=== PATIENT | female | born 1990 | race Caucasian/White ===

== ENCOUNTER 2018-02-03 19:06 | Inpatient (IN) | payer OTHER ==
[2018-02-03] MEDS ORDERED: MEPIVACAINE HCL 1% MPF 30 ML/VIAL SOL INFIL PRN (20:06)
[2018-02-03] MEDS ORDERED: METHYLERGONOVINE MALEATE 0.2 MG/ML SOL IM PRN (20:06)
[2018-02-03] MEDS ORDERED: LACTATED RINGERS 1,000 ML IV PRN (20:06)
[2018-02-03] MEDS ORDERED: CARBOPROST 250 MCG/ML SOL IM PRN (20:06)
[2018-02-03] MEDS ORDERED: FENTANYL 100MCG/2ML SOL IV PRN (20:06)
[2018-02-03] MEDS ORDERED: OXYTOCIN 10000 MU/ML SOL IM PRN (20:06)
[2018-02-03] MEDS: SODIUM CHLORIDE 0.9% FLUSH 10 ML SOL IV SCH (20:30)
[2018-02-03 20:37] LABS: BASOPHILS % (AUTO) 0 % (0-3); EOSINOPHILS % (AUTO) 1 % (0-9); HEMATOCRIT 35 % (35-47); HEMOGLOBIN 11.5 gm/dl (12.0-15.5); LYMPHOCYTES % (AUTO) 22.1 % (10-50); MEAN CORPUSCULAR HEMOGLOBIN 29.5 pg (27.0-32.0); MEAN CORPUSCULAR VOLUME 89 fL (81-99); MONOCYTES % (AUTO) 5.5 % (0-12); NEUTROPHILS % (AUTO) 71.2 % (37-80)
[2018-02-04] MEDS ORDERED: TERBUTALINE SULFATE 1 MG/ML SOL SC PRN (00:23)
[2018-02-04] MEDS ORDERED: OXYTOCIN 10000 MU/ML 20,000 MU in LACTATED RINGERS 1,000 ML IV SCH (00:30)
[2018-02-04] MEDS ORDERED: LACTATED RINGERS 1,000 ML IV SCH ×4 (00:30→05:45)
[2018-02-04] MEDS ORDERED: OXYTOCIN 10000 MU/ML SOL ONE (01:06)
[2018-02-04] MEDS ORDERED: LACTATED RINGERS 1,000 ML ONE (01:06)
[2018-02-04] MEDS: SODIUM CHLORIDE 0.9% FLUSH 10 ML SOL IV PRN ×3 (01:31→04:15)
[2018-02-04] MEDS ORDERED: NALBUPHINE HCL 20 MG/ML SOL IV PRN ×2 (01:50→05:23)
[2018-02-04] MEDS: SODIUM CHLORIDE 0.9% FLUSH 10 ML SOL IV SCH ×3 (03:58→22:55)
[2018-02-04] MEDS ORDERED: DIPHENHYDRAMINE 50 MG/ML SOL IV PRN (05:23)
[2018-02-04] MEDS ORDERED: EPHEDRINE SULFATE 50 MG/ML SOL IV PRN (05:23)
[2018-02-04] MEDS ORDERED: NALOXONE HYDROCHLORIDE 0.4 MG/ML SOL IV PRN ×2 (05:23→05:40)
[2018-02-04] MEDS ORDERED: ONDANSETRON HCL 4 MG/2 ML SOL IV PRN (05:30)
[2018-02-04] MEDS ORDERED: MORPHINE SULFATE 0.5 MG/ML SOL ONE (05:33)
[2018-02-04] MEDS ORDERED: DIPHENHYDRAMINE 25 MG CAP PO PRN (05:40)
[2018-02-04] MEDS ORDERED: DIPHENHYDRAMINE 50 MG/ML SOL IM PRN (05:40)
[2018-02-04] MEDS ORDERED: HYDROXYZINE HYDROCHLORIDE 25 MG/ML SOL IM PRN (05:40)
[2018-02-04] MEDS ORDERED: ONDANSETRON HCL 4 MG/2 ML SOL ONE (05:41)
[2018-02-04] MEDS: LACTATED RINGERS 1,000 ML IV SCH ×2 (07:54→19:58)
[2018-02-04] MEDS ORDERED: FLEET ENEMA PR PRN ×2 (08:41→08:42)
[2018-02-04] MEDS ORDERED: BENZOCAINE/MENTHOL 1 SPR TOP PRN ×2 (08:41→08:42)
[2018-02-04] MEDS ORDERED: WITCH HAZEL 1 EA PAD TOP PRN ×2 (08:41→08:42)
[2018-02-04] MEDS ORDERED: METHYLERGONOVINE MALEATE 0.2 MG TAB PO PRN ×2 (08:41→08:42)
[2018-02-04] MEDS ORDERED: TEMAZEPAM 15MG 15 MG CAP PO PRN ×2 (08:41→08:42)
[2018-02-04] MEDS ORDERED: APAP/HYDROCODONE 1 EACH TABLET PO PRN ×2 (08:41→08:42)
[2018-02-04] MEDS ORDERED: BISACODYL 10 MG SUP PR PRN ×2 (08:41→08:42)
[2018-02-04] MEDS ORDERED: IBUPROFEN 600 MG TAB PO PRN (08:42)
[2018-02-04] MEDS ORDERED: DOCUSATE SODIUM 100 MG SGL PO SCH (09:00)
[2018-02-04] MEDS: FOLIC ACID 1 MG TAB PO SCH (11:48)
[2018-02-04] MEDS: DOCUSATE SODIUM 100 MG SGL PO SCH ×2 (11:48→21:14)
[2018-02-04] MEDS: MULTIVITAMIN2 1 EA TAB PO SCH (11:48)
[2018-02-04 21:24] VITALS: RESP 16; O2SAT 97
[2018-02-04] MEDS: IBUPROFEN 600 MG TAB PO PRN (23:13)
[2018-02-05 09:06] VITALS: BP 114/67; PULSE 63; TEMP 97.7
[2018-02-05] MEDS: MULTIVITAMIN2 1 EA TAB PO SCH (09:08)
[2018-02-05] MEDS: FOLIC ACID 1 MG TAB PO SCH (09:09)
[2018-02-05] MEDS: DOCUSATE SODIUM 100 MG SGL PO SCH (09:09)
[2018-02-05] MEDS: IBUPROFEN 600 MG TAB PO PRN (09:59)
== END 2018-02-05 15:10 | disposition home or self-care (01) | DRG 807 ==
LOC: OBSVTOIN 19:06 → OB 19:06
PROVIDERS: ADMIT Family Medicine; ATTEND Family Medicine
PROC: 10E0XZZ Delivery of Products of Conception, External Approach (ICD-10-PCS; principal; 2018-02-04)
DX: O80 Encounter for full-term uncomplicated delivery (principal); Z37.0 Single live birth; Z3A.40 40 weeks gestation of pregnancy
CPT/HCPCS: 36415; 59025; 85018; 85025; J0670; J2274; J2405; J2590; J3010; J3105; A9270-GY